=== PATIENT | male | born 1990 | race Caucasian/White ===

== ENCOUNTER 2018-11-15 05:38 | Emergency (ER) | payer SELFPAY ==
[2018-11-15] MEDS ORDERED: Sodium Chloride 0.9% 10 ML Syringe FLUSH PRN (06:07)
[2018-11-15] MEDS ORDERED: Ondansetron 4 MG/2 ML SDV IVPUSH ONE (06:08)
[2018-11-15] MEDS ORDERED: fentaNYL 100 MCG/2 ML SDV IVPUSH ONE (06:08)
--- NOTE | 2018-11-15 06:10 | EDM.PDOC ---
<OfficerSal - Last Filed: 11/15/18 06:09> ED HPI GENERAL MEDICAL PROBLEM - General Chief Complaint: Abdominal Pain Time Seen by Provider: 11/15/18 06:05 Source of Information: Reports: Patient, RN Notes Reviewed History Limitations: Reports: No Limitations - History of Present Illness INITIAL COMMENTS - FREE TEXT/NARRATIVE: 28-year-old gentleman presents to the emergency department today with complaint of abdominal pain, states his abdominal pain for the last 24 hours he has had nausea and vomiting he still passing gas had a normal bowel movement it's difficult for him to get in a comfortable position has had hot flashes felt feverish Right Abdominal Pain Score (Numeric/FACES): 10 - Related Data Allergies Allergy/AdvReac Type Severity Reaction Status Date / Time No Known Allergies Allergy Verified 11/15/18 05:53 Home Meds: Home Meds NK [No Known Home Meds] 11/15/18 [History] Past Medical History Genitourinary History: Reports: Renal Calculus Musculoskeletal History: Reports: Fracture Social & Family History - Tobacco Use Smoking Status *Q: Current Every Day Smoker Years of Tobacco use: 5 Packs/Tins Daily: 0.5 - Recreational Drug Use Recreational Drug Use: No ED ROS GENERAL - Review of Systems Review Of Systems: See Below Constitutional: Reports: Fever, Chills HEENT: Reports: No Symptoms Respiratory: Reports: No Symptoms Cardiovascular: Reports: No Symptoms GI/Abdominal: Reports: Abdominal Pain, Flatus, Nausea, Vomiting. Denies: Constipation, Diarrhea : Reports: No Symptoms Musculoskeletal: Reports: No Symptoms Skin: Reports: No Symptoms Neurological: Reports: No Symptoms ED EXAM, GI/ABD - Physical Exam Exam: See Below Exam Limited By: No Limitations General Appearance: Alert, Mild Distress Neck: Normal Inspection, Supple, Non-Tender, Full Range of Motion Respiratory/Chest: No Respiratory Distress, Lungs Clear, Normal Breath Sounds, No Accessory Muscle Use, Chest Non-Tender Cardiovascular: Regular Rate, Rhythm, No Murmur GI/Abdominal Exam: Soft, No Distention, Tender (Right lower quadrant) Back Exam: Normal Inspection, Full Range of Motion. No: CVA Tenderness (R), CVA Tenderness (L) Extremities: Normal Inspection, Normal Range of Motion, Non-Tender, No Pedal Edema Course - Vital Signs Last Recorded V/S: Last Vital Signs Temp 94.1 F L 02/25/19 06:00 Pulse 59 L 11/15/18 08:57 Resp 20 11/15/18 07:23 BP 148/88 H 11/15/18 08:57 Pulse Ox 100 11/15/18 07:23 - Orders/Labs/Meds Orders: Active Orders 24 hr Category Date Time Status Peripheral IV Care [RC] . DIRECTED Care 11/15/18 06:07 Active Peripheral IV Insertion Adult [OM.PC] Urgent Oth 11/15/18 06:07 Ordered Labs: Laboratory Tests 11/15/18 11/15/18 11/15/18 Range/Units 06:23 06:23 06:23 WBC 13.6 H (4.5-11.0) K/uL RBC 4.82 (4.30-5.90) M/uL Hgb 14.4 (12.0-15.0) g/dL Hct 42.7 (40.0-54.0) % MCV 89 (80-98) fL MCH 30 (27-31) pg MCHC 34 (32-36) % Plt Count 318 (150-400) K/uL Neut % (Auto) 60 (36-66) % Lymph % (Auto) 28 (24-44) % Hughes % (Auto) 9 H (2-6) % Eos % (Auto) 2 (2-4) % Baso % (Auto) 0 (0-1) % Sodium 144 (140-148) mmol/L Potassium 2.8 L* (3.6-5.2) mmol/L Chloride 104 (100-108) mmol/L Carbon Dioxide 23 (21-32) mmol/L Anion Gap 19.8 H (5.0-14.0) mmol/L BUN 15 (7-18) mg/dL Creatinine 1.1 (0.8-1.3) mg/dL Est Cr Clr Drug Dosing 84.46 mL/min Estimated GFR (MDRD) > 60 (>60) Glucose 144 H (74-106) mg/dL Lactic Acid 2.5 H (0.4-2.0) mmol/L Calcium 9.5 (8.5-10.1) mg/dL Total Bilirubin 0.4 (0.2-1.0) mg/dL AST 18 (15-37) U/L ALT 26 (12-78) U/L Alkaline Phosphatase 96 (46-116) U/L Total Protein 7.6 (6.4-8.2) g/dL Albumin 4.1 (3.4-5.0) g/dL Globulin 3.5 (2.3-3.5) g/dL Albumin/Globulin Ratio 1.2 (1.2-2.2) Lipase 138 (73-393) U/L Urine Color Urine Appearance Urine pH (4.5-8.0) Ur Specific [place] (1.008-1.030) Urine Protein (NEGATIVE) mg/dL Urine Glucose (UA) (NEGATIVE) mg/dL Urine Ketones (NEGATIVE) mg/dL Urine Occult Blood (NEGATIVE) Urine Nitrite (NEGAITVE) Urine Bilirubin (NEGATIVE) Urine Urobilinogen (NORMAL) mg/dL Ur Leukocyte Esterase (NEGATIVE) Urine RBC (0-5) Urine WBC (0-5) Ur Epithelial Cells Amorphous Sediment Urine Bacteria Urine Mucus 11/15/18 Range/Units 07:38 WBC (4.5-11.0) K/uL RBC (4.30-5.90) M/uL Hgb (12.0-15.0) g/dL Hct (40.0-54.0) % MCV (80-98) fL MCH (27-31) pg MCHC (32-36) % Plt Count (150-400) K/uL Neut % (Auto) (36-66) % Lymph % (Auto) (24-44) % Hughes % (Auto) (2-6) % Eos % (Auto) (2-4) % Baso % (Auto) (0-1) % Sodium (140-148) mmol/L Potassium (3.6-5.2) mmol/L Chloride (100-108) mmol/L Carbon Dioxide (21-32) mmol/L Anion Gap (5.0-14.0) mmol/L BUN (7-18) mg/dL Creatinine (0.8-1.3) mg/dL Est Cr Clr Drug Dosing mL/min Estimated GFR (MDRD) (>60) Glucose (74-106) mg/dL Lactic Acid (0.4-2.0) mmol/L Calcium (8.5-10.1) mg/dL Total Bilirubin (0.2-1.0) mg/dL AST (15-37) U/L ALT (12-78) U/L Alkaline Phosphatase (46-116) U/L Total Protein (6.4-8.2) g/dL Albumin (3.4-5.0) g/dL Globulin (2.3-3.5) g/dL Albumin/Globulin Ratio (1.2-2.2) Lipase (73-393) U/L Urine Color Yellow Urine Appearance Clear Urine pH 8.0 (4.5-8.0) Ur Specific [place] 1.005 L (1.008-1.030) Urine Protein Negative (NEGATIVE) mg/dL Urine Glucose (UA) 100 H (NEGATIVE) mg/dL Urine Ketones 15 H (NEGATIVE) mg/dL Urine Occult Blood Large (NEGATIVE) Urine Nitrite Negative (NEGAITVE) Urine Bilirubin Negative (NEGATIVE) Urine Urobilinogen Normal (NORMAL) mg/dL Ur Leukocyte Esterase Negative (NEGATIVE) Urine RBC 5-10 H (0-5) Urine WBC Not seen (0-5) Ur Epithelial Cells Not seen Amorphous Sediment Not seen Urine Bacteria Not seen Urine Mucus Few Meds: Medications Discontinued Medications Generic Name Dose Route Start Last Admin Trade Name Freq PRN Reason Stop Dose Admin Fentanyl 50 mcg 11/15/18 06:08 11/15/18 06:16 Sublimaze IVPUSH 11/15/18 06:09 50 mcg ONETIME ONE Administration Hydromorphone HCl 0.5 mg 11/15/18 08:44 11/15/18 08:57 Dilaudid IVPUSH 11/15/18 08:45 0.5 mg ONETIME ONE Administration Lactated Ringer's 1,000 mls @ 999 mls/hr 11/15/18 06:15 11/15/18 06:16 Ringers, Lactated IV 999 mls/hr ASDIRECTED MAXINE Administration Sodium Chloride 72 mls @ 3.2 mls/sec 11/15/18 06:20 11/15/18 06:27 Normal Saline IV 11/15/18 06:21 3.2 mls/sec ASDIRECTED STA Administration Potassium Chloride 20 meq/ 112 mls @ 50 mls/hr 11/15/18 07:45 11/15/18 07:31 Lidocaine HCl 2 ml/ Sodium IV 11/15/18 09:59 50 mls/hr Chloride ONETIME ONE Administration Iopamidol 100 ml 11/15/18 06:20 11/15/18 06:27 Isovue-300 (61%) IV 11/15/18 06:21 100 ml . DIRECTED STA Administration Ketorolac Tromethamine 30 mg 11/15/18 07:11 11/15/18 07:21 Toradol IVPUSH 11/15/18 07:12 30 mg ONETIME ONE Administration Ondansetron HCl 4 mg 11/15/18 06:08 11/15/18 06:16 Zofran IVPUSH 11/15/18 06:09 4 mg ONETIME ONE Administration Sodium Chloride 10 ml 11/15/18 06:07 11/15/18 06:16 Saline Flush FLUSH 10 ml ASDIRECTED PRN Administration Keep Vein Open Tamsulosin HCl 0.4 mg 11/15/18 07:41 11/15/18 07:52 Flomax PO 11/15/18 07:42 0.4 mg ONETIME ONE Administration Departure - Departure Disposition: Home, Self-Care 01 Clinical Impression: Right nephrolithiasis, Renal colic on right side, Hypokalemia - Discharge Information Instructions: Kidney Stones, [id number] Referrals: PCP,None [Primary Care Provider] - Forms: ED Department Discharge Care Plan Goals: For the next 24-48 hours, take a regular dose of ketorolac every 6 hours and add hydrocodone every 4-6 hours if needed. Return in the next couple of days if pain is persistent, or sooner if worsening despite medications. <Varinder Peters - Last Filed: 11/15/18 12:35> Course - Re-Assessments/Exams Free Text/Narrative Re-Assessment/Exam: 11/15/18 07:26 Care turned over from Officer pending CT scan. IMPRESSION: 1. 4 millimeter obstructing right proximal ureteral stone with mild hydronephrosis. Additional bilateral nonobstructing renal calculi. 2. Normal appendix Patient was given 30 mg of IV Toradol and 4 mg by mouth Flomax. 11/15/18 08:50 Patient had markedly less pain within 45 minutes after the Toradol. His pain started recurring. He was then given 0.5 mg of IV Dilaudid. He'll be discharged with oral Toradol, oral hydrocodone, and will return if not improving satisfactorily within 48-72 hours. He can return anytime if his pain is not controlled with the medications. Departure - Departure Time of Disposition: 09:56 Condition: Fair
[2018-11-15] MEDS ORDERED: Lactated Ringers 1,000 ML IV SCH (06:15)
[2018-11-15] MEDS ORDERED: Iopamidol 612 MG/ML 100 ML Bottle IV STA (06:20)
[2018-11-15] MEDS ORDERED: Potassium Chloride 20 MEQ in Premix Bag 1 BAG IV ONE (06:48)
--- NOTE | 2018-11-15 07:00 | CRLCT ---
INDICATION: Right lower quadrant pain. TECHNIQUE: Noncontrast chest CT abdomen pelvis coronal sagittal reformatted images obtained. FINDINGS: Lung bases are clear. Heart size is normal. No pericardial or pleural effusion. Liver spleen pancreas adrenal glands, gallbladder appears unremarkable. Delayed nephrogram on the right which is in the cortical medullary phase. Left kidney is in the nephrographic phase. Bilateral small nonobstructing renal calculi. No hydronephrosis on the left. Mild hydronephrosis on the right due to a he obstructing 4 mm right proximal ureteral stone. Slight urothelial enhancement. Urinary bladder decompressed and grossly unremarkable. Bowel is unremarkable. Normal appendix. No inflammatory change in the abdomen or pelvis. No suspicious bony lesions. IMPRESSION: 1. 4 millimeter obstructing right proximal ureteral stone with mild hydronephrosis. Additional bilateral nonobstructing renal calculi. 2. Normal appendix Please note that all CT scans at this facility use dose modulation, iterative reconstruction, and/or weight-based dosing when appropriate to reduce radiation dose to as low as reasonably achievable. Dictated by Gina Ventura MD @ Nov 15 2018 6:50AM Signed by Dr. Gina Ventura @ Nov 15 2018 6:58AM
[2018-11-15] MEDS ORDERED: Ketorolac 30 MG/ML SDV IVPUSH ONE (07:11)
[2018-11-15] MEDS ORDERED: Tamsulosin 0.4 MG Cap.ER PO ONE (07:41)
[2018-11-15] MEDS ORDERED: Potassium Chloride 20 MEQ, Lidocaine 1% 2 ML in Sodium Chloride 0.9% 100 ML IV ONE (07:45)
[2018-11-15] MEDS ORDERED: HYDROmorphone 0.5 MG/0.5 ML Syringe IVPUSH ONE (08:44)
== END 2018-11-15 09:56 | disposition home or self-care (01) ==
LOC: JP.ED 05:38
DX: N13.2 Hydronephrosis with renal and ureteral calculous obstruction (principal); E87.6 Hypokalemia; F17.210 Nicotine dependence, cigarettes, uncomplicated
CPT/HCPCS: 36415; 74177; 80053; 81001; 83605; 83690; 85025; 96361; 96374; 96375; 99284; A9270; J1170; J1885; J2001; J2405; J3010; J3480; J7030; J7120; Q9967

== ENCOUNTER 2019-10-22 06:11 | Emergency (ER) | payer SELFPAY ==
--- NOTE | 2019-10-22 08:47 | EDM.PDOC ---
ED HPI GENERAL MEDICAL PROBLEM - General Chief Complaint: Skin Complaint Stated Complaint: SPIDER BITE ON RT ARM Time Seen by Provider: 10/22/19 08:30 Source of Information: Reports: Patient History Limitations: Reports: No Limitations - History of Present Illness INITIAL COMMENTS - FREE TEXT/NARRATIVE: 29-year-old male who has had 3 small red bumps on the lateral aspect of his right arm for the past 3 days, the swelling has gone down but today they look like they had red "rings around them" which scared him. No fevers or chills, no other rash elsewhere. He is concerned he may have gotten bit by a spider, he slept on the couch one night which is unusual. Duration: Day(s): (3 days) Location: Reports: Upper Extremity, Right Associated Symptoms: Reports: No Other Symptoms Right Arm Pain Score (Numeric/FACES): 3 - Related Data Allergies Allergy/AdvReac Type Severity Reaction Status Date / Time bee venom protein (honey bee) Allergy Hives Verified 10/22/19 08:29 Home Meds: Home Meds NK [No Known Home Meds] 11/15/18 [History] Past Medical History Genitourinary History: Reports: Renal Calculus Musculoskeletal History: Reports: Fracture - Infectious Disease History Infectious Disease History: Reports: Chicken Pox - Past Surgical History Musculoskeletal Surgical History: Reports: Shoulder Surgery Social & Family History - Tobacco Use Smoking Status *Q: Former Smoker Years of Tobacco use: 10 Packs/Tins Daily: 1 Used Tobacco, but Quit: Yes Month/Year Tobacco Last Used: Sep 2018 Second Hand Smoke Exposure: No - Caffeine Use Caffeine Use: Reports: Soda - Recreational Drug Use Recreational Drug Use: No ED ROS GENERAL - Review of Systems Review Of Systems: See Below Constitutional: Denies: Fever, Chills, Malaise Respiratory: Denies: Shortness of Breath Cardiovascular: Denies: Chest Pain GI/Abdominal: Denies: Nausea, Vomiting Neurological: Denies: Headache ED EXAM, SKIN/RASH Exam: See Below Exam Limited By: No Limitations General Appearance: Alert, No Apparent Distress Respiratory/Chest: No Respiratory Distress Cardiovascular: Regular Rate, Rhythm Extremities: Other (Exam is otherwise limited to the right arm. Patient has 3 discrete erythematous papules on the lateral aspect of the right elbow. They are slightly erythematous with no fluctuance or significant cellulitis) Course - Vital Signs Last Recorded V/S: Last Vital Signs Temp 96.9 F 10/22/19 08:35 Pulse 71 10/22/19 08:35 Resp 16 10/22/19 08:35 BP 142/110 H 10/22/19 08:35 Pulse Ox 97 10/22/19 08:35 - Re-Assessments/Exams Free Text/Narrative Re-Assessment/Exam: 10/22/19 08:45 Patient was reassured that these are not infected and are improving, the itching and erythema is a result of his immune system reacting to the bites. He was given some triamcinolone cream to rub on the bites for the next few days and can recheck next week if not improving satisfactorily. Departure - Departure Time of Disposition: 08:58 Disposition: Home, Self-Care 01 Clinical Impression: Insect bite of arm, right Qualifiers: Encounter type: initial encounter Qualified Code(s): S40.861A - Insect bite ( nonvenomous) of right upper arm, initial encounter - Discharge Information Instructions: Insect Bite, Adult, [id number] Referrals: PCP,None [Primary Care Provider] - Forms: ED Department Discharge Care Plan Goals: Rub steroid cream on the area up to 3 times daily through the weekend, and recheck next week if not improving satisfactorily. Return sooner if red streaks develop or you start running a fever. Sepsis Event Note - Evaluation Sepsis Screening Result: No Definite Risk - Focused Exam Vital Signs: Vital Signs Temp Pulse Resp BP Pulse Ox 10/22/19 08:35 96.9 F 71 16 142/110 H 97 Date Exam was Performed: 10/22/19 Time Exam was Performed: 09:16
== END 2019-10-22 08:58 | disposition home or self-care (01) ==
LOC: JP.ED 06:11
CPT/HCPCS: 99282

== ENCOUNTER 2019-12-13 12:37 | Emergency (ER) | payer SELFPAY ==
--- NOTE | 2019-12-13 13:16 | EDM.PDOC ---
ED HPI GENERAL MEDICAL PROBLEM - General Chief Complaint: Skin Complaint Stated Complaint: POSSIBLE INFECTION ON RT FORARM Time Seen by Provider: 12/13/19 13:04 Source of Information: Reports: Patient, RN Notes Reviewed History Limitations: Reports: No Limitations - History of Present Illness INITIAL COMMENTS - FREE TEXT/NARRATIVE: 29-year-old gentleman presents emergency department today with redness on his right arm, he states he may have had break in the skin a few weeks ago but over the last 24 hours he has developed a red area near his wrist and he now has a red streak going up his arm is warm to the touch tender to the touch no fevers Right Arm Pain Score (Numeric/FACES): 4 - Related Data Allergies Allergy/AdvReac Type Severity Reaction Status Date / Time bee venom protein (honey bee) Allergy Hives Verified 12/13/19 13:00 Home Meds: Home Meds Cephalexin [Keflex] 500 mg PO TID #21 capsule 12/13/19 [Rx] Past Medical History Genitourinary History: Reports: Renal Calculus Musculoskeletal History: Reports: Fracture Neurological History: Reports: Concussion - Infectious Disease History Infectious Disease History: Reports: Chicken Pox - Past Surgical History Musculoskeletal Surgical History: Reports: Shoulder Surgery Social & Family History - Tobacco Use Smoking Status *Q: Former Smoker Used Tobacco, but Quit: Yes Month/Year Tobacco Last Used: 2018 - Caffeine Use Caffeine Use: Reports: Coffee - Recreational Drug Use Recreational Drug Use: No ED ROS GENERAL - Review of Systems Review Of Systems: See Below Constitutional: Denies: Fever Skin: Reports: Pallor, Rash, Erythema ED EXAM, SKIN/RASH Exam: See Below Text/Narrative:: Examination the right arm I do appreciate an erythematous patch about the size of a golf ball there is a red streak going up the forearm it is warm to the touch tender to the touch radial pulses +2 Exam Limited By: No Limitations General Appearance: Alert, WD/WN, No Apparent Distress Course - Vital Signs Last Recorded V/S: Last Vital Signs Temp 96.7 F L 12/13/19 12:57 Pulse 100 12/13/19 12:57 Resp 16 12/13/19 12:57 BP 167/109 H 12/13/19 12:57 Pulse Ox 97 12/13/19 12:57 Departure - Departure Time of Disposition: 13:15 Disposition: Home, Self-Care 01 Condition: Fair Clinical Impression: Cellulitis Qualifiers: Site of cellulitis: extremity Site of cellulitis of extremity: upper extremity Laterality: right Qualified Code(s): L03.113 - Cellulitis of right upper limb - Discharge Information Instructions: Cellulitis, Adult Referrals: PCP,None [Primary Care Provider] - Additional Instructions: Take full course of antibiotics please followup with your primary care provider in 3-4 days if not better, please call return to the emergency department with worsening of symptoms. Sepsis Event Note - Evaluation Sepsis Screening Result: No Definite Risk - Focused Exam Vital Signs: Vital Signs Temp Pulse Resp BP Pulse Ox 12/13/19 12:57 96.7 F L 100 16 167/109 H 97 Date Exam was Performed: 12/13/19 Time Exam was Performed: 13:11 - Assessment/Plan Plan: Assessment Acuity = acute Site and laterality = cellulitis right arm Etiology = probable underlying bacterial Manifestations = none Location of injury = Home Lab values = none Plan Prescription sent to [facility]eflex 500 mg p.o. 3 times daily x7 days follow- up primary care in 3 to 4 days if no improvement This note was dictated using [employer] recognition software please call with any questions on syntax or grammar.
== END 2019-12-13 13:31 | disposition home or self-care (01) ==
LOC: JP.ED 12:37
DX: L03.113 Cellulitis of right upper limb (principal); Z87.891 Personal history of nicotine dependence; Z91.030 Bee allergy status
CPT/HCPCS: 99283

== ENCOUNTER 2023-05-09 14:41 | Emergency (ER) | payer SELFPAY | END 2023-05-09 16:16 | disposition home or self-care (01) | LOC: JP.ED 14:41 | DX: S62.300A Unspecified fracture of second metacarpal bone, right hand, initial encounter for closed fracture (principal); Z91.030 Bee allergy status; Y04.2XXA Assault by strike against or bumped into by another person, initial encounter | CPT/HCPCS: 29125; 73130-26-RT; 73130-RT; 99283 ==